=== PATIENT | male | born 1960 | race Caucasian/White ===

== ENCOUNTER 2020-07-05 08:18 | Outpatient (CLI) | payer OTHER ==
--- NOTE | 2020-07-05 10:11 | MRI ---
MRI LEFT SHOULDER: DATE: 07/05/2020. PROVIDED CLINICAL HISTORY: Pain. FINDINGS: There is high-grade partial thickness bursal surface tearing involving a small portion of the width o f the distal conjoined tendon near the footplate. There is medial dislocation of the long head bicep s tendon probably deep to the subscapularis tendon fibers and compatible with bicipital sling and und ersurface partial tearing of the insertional subscapularis tendon fibers. The components of the rota tor cuff appear otherwise intact. The glenoid labrum and glenohumeral articular cartilage are suboptimally evaluated in the absence of joint distention, but appear grossly normal. The amount of fluid within the glenohumeral joint is ph ysiologic. There is greater than physiologic subacromial subdeltoid bursal fluid. Acromioclavicular joint osteo arthrosis is demonstrated, without significant mass effect upon the subjacent supraspinatus. No focal concerning regional marrow or muscular signal abnormality apparent. IMPRESSION: 1. High-grade partial thickness bursal surface tearing involving the distal conjoined tendon of the footplate. 2. Medial dislocation of the longhead biceps tendon, compatible with bicipital sling injury and part ial thickness undersurface tearing of the subscapularis insertional fibers. 3. Greater than physiologic subacromial subdeltoid bursal fluid, which may reflect bursitis versus a n occult full-thickness component to the described tear. 4. Acromioclavicular joint osteoarthrosis. POS: FADY
== END 2020-07-05 08:19 | disposition home or self-care (01) ==
LOC: BICMRI 08:18
PROVIDERS: ATTEND Family Medicine
DX: M75.22 Bicipital tendinitis, left shoulder (principal); S46.912A Strain of unspecified muscle, fascia and tendon at shoulder and upper arm level, left arm, initial encounter; M19.012 Primary osteoarthritis, left shoulder